=== PATIENT | female | born 1935 | race Caucasian/White ===

== ENCOUNTER 2017-07-09 11:35 | Day surgery (SDC) | payer MEDICARE ==
[2017-07-08 15:36] VITALS: BMI 24.7
[2017-07-09 12:53] LABS: Hemoglobin 12.5 g/dL (12.0-16.0); Mean Corpuscular HGB CONC 33.3 g/dL (32.0-36.0); Mean Corpuscular Hemoglobin 30.8 pg (27.0-31.0); Mean Corpuscular Volume 92.4 fl (81.0-99.0); Mean Platelet Volume 6.9 fL (7.4-10.4); Platelet Count 226 thou/uL (130-400); RBC Distribution Width 12.1 % (11.5-14.5); Red Blood Cell (RBC) Count 4.06 mill/uL (4.20-5.40); White Blood Cell (WBC) Count 8.2 thou/uL (4.8-10.8)
[2017-07-09 13:06] LABS: Anion Gap 15 mmol/L (10-20); BUN (Urea Nitrogen) 14 mg/dL (9.8-20.1); Calc. Creatinine Clearance 42 mL/min (70-130); Calcium 9.7 mg/dL (7.8-10.44); Carbon Dioxide 22 mmol/L (23-31); Chloride 99 mmol/L (98-107); Estimated GFR-MDRD 52; Glucose 112 mg/dL (83-110); Sodium 132 mmol/L (136-145)
[2017-07-09] MEDS ORDERED: CEFAZOLIN/Water 2 GM/20 ML SYRINGE ONE (15:07)
[2017-07-09] MEDS ORDERED: Fentanyl 100 MCG/2 ML VIAL ONE (15:17)
[2017-07-09] MEDS ORDERED: Bupivacaine PF 0.5% 30 ML VIAL ONE (15:34)
[2017-07-09] MEDS ORDERED: Dexamethasone 20 MG/5 ML VIAL ONE (15:50)
[2017-07-09] MEDS ORDERED: Propofol 200 MG/20 ML VIAL ONE (15:50)
[2017-07-09] MEDS ORDERED: Ondansetron HCl/PF 4 MG/2 ML Vial ONE (15:50)
--- NOTE | 2017-07-10 14:28 | OP ---
DATE OF SURGERY: 07/09/2017 PREOPERATIVE DIAGNOSIS: Left ring finger triggering. POSTOPERATIVE DIAGNOSIS: Left ring finger triggering. SURGICAL PROCEDURE: Left ring finger trigger release. ANESTHESIA: TIVA SURGEON: Marvin Uriarte M.D. TOURNIQUET TIME: 14 minutes at 250 mmHg. DRAINS: None. SPECIMEN: None. COMPLICATIONS: None. OUTCOME: Satisfactory. INDICATIONS: The patient is a pleasant 82-year-old lady with a history of left ring finger triggerin g. We have tried a steroid injection; however, she continues to trigger. After discussion with elizabeth ent including risks and benefits, we decided to proceed with trigger release. Informed consent has b een obtained. I believe all questions answered. PROCEDURE: The patient was brought to the operating room and then a timeout performed followed by in duction of general anesthesia. Next, a sterile prep and drape was performed of the left upper extrem ity. The limb was then exsanguinated with Esmarch bandage, tourniquet inflated to 250 mmHg. An 8 mL of 0.5% Marcaine was then used to infiltrate the skin around the incision site. Next, a transverse incision was made following the distal palmar skin crease at the base of the ring finger. After skin was sharply incised, dissection was carried down bluntly such that the flexor tendon sheath could be identified as could be proximal border of the A1 yash. Next, using a [place] blade, the A1 yash was divided over its entire width. At the completion of this, the finger was brought passively throu gh flexion, extension with palpation over the A1 area nodularity could be appreciated within the flex or tendon consistent with her history of triggering. Once it was felt that the yash was fully rele ased, the wound was irrigated with bulb syringe and normal saline and then wound closure performed wi th 4-0 nylon in horizontal mattress fashion. A Xeroform gauze and Eric wrap dressing was then applied to the hand and then the patient was transferred to recovery room in stable condition. Tourniquet w as let down at the completion of dressing. There were no complications and she tolerated the procedu re well.
== END 2017-07-09 17:30 | disposition home or self-care (01) ==
LOC: SDC 11:35
PROVIDERS: ATTEND Orthopaedic Surgery
PROC: 0LN80ZZ Release Left Hand Tendon, Open Approach (ICD-10-PCS; principal; 2017-07-09)
DX: M65.342 Trigger finger, left ring finger (principal); E78.00 Pure hypercholesterolemia, unspecified; E07.9 Disorder of thyroid, unspecified; I50.9 Heart failure, unspecified; Z95.1 Presence of aortocoronary bypass graft; Z88.2 Allergy status to sulfonamides; Z88.8 Allergy status to other drugs, medicaments and biological substances; Z79.899 Other long term (current) drug therapy; Z98.890 Other specified postprocedural states
CPT/HCPCS: 36415; 80048; 85027; 93005; 93010; J1100; J2001; J2405; J2704; J3010; S0020